=== PATIENT | female | born 2000 | race African-American/Black ===

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

== ENCOUNTER 2019-07-21 21:37 | Emergency (ER) | payer OTHER | END 2019-07-22 01:01 | disposition home or self-care (01) | LOC: ER 21:37 | DX: R10.84 Generalized abdominal pain (principal); R10.33 Periumbilical pain; R11.2 Nausea with vomiting, unspecified ==

== ENCOUNTER 2020-08-23 17:12 | Emergency (ER) | payer OTHER ==
[~2020-08-23] VITALS: Ht 172.7 cm; Wt 72.6 kg
[~2020-08-23 17:12] MED LIST: BACTRIM DS TAB1 EACH PO; ONDANSETRON ODT8 MG PO; PRILOSEC OTC20 MG PO; TRAMADOL 50 MG50 MG PO
[2020-08-23 17:48] LABS: ABSOLUTE NEUTROPHILS 4.8 thou/uL (1.4-8.2); BASOPHILS 0.9 % (0.0-2.0); EOSINOPHILS 0.5 % (0.0-3.0); HEMATOCRIT 42.7 % (37.0-47.0); LYMPHOCYTES 26.4 % (24.0-44.0); MCH 28.9 pg (26.0-34.0); MCHC 32.8 g/dL (28.0-37.0); MCV 88.1 fL (80.0-100.0); MONOCYTES 8.1 % (1.0-8.0); PLATELET COUNT 326 thou/uL (150-400); POLYS 64.1 % (36.0-66.0); RBC 4.84 mil/uL (4.20-5.00); RDW 13.7 % (10.5-14.5); WBC 7.5 thou/uL (4.0-11.0)
[2020-08-23 18:00] LABS: CREATININE 1.2 mg/dL (0.6-1.0)
[2020-08-23 18:06] LABS: ALBUMIN 4.6 g/dL (3.4-5.0); TOTAL BILIRUBIN 0.3 mg/dL (0.2-1.0); TOTAL PROTEIN 8.6 g/dL (6.4-8.2)
[2020-08-23] MEDS ORDERED: MEDROXYPROGESTE10 MG PO (19:21)
[2020-08-23] MEDS ORDERED: NAPROSYN500 MG PO (21:59)
[2020-08-23 22:12] VITALS: BP 121/62
== END 2020-08-23 22:17 | disposition home or self-care (01) ==
LOC: ER 17:12
PROVIDERS: Emergency Medicine
DX: R10.2 Pelvic and perineal pain (principal); N93.9 Abnormal uterine and vaginal bleeding, unspecified; R11.0 Nausea